=== PATIENT | female | born 1985 | race African-American/Black ===

== ENCOUNTER 2018-03-08 11:09 | Emergency (ER) | payer OTHER, MEDICAID ==
[~2018-03-08] VITALS: Ht 172.7 cm; Wt 108.9 kg
[~2018-03-08 11:09] MED LIST: ACETAMINOPHEN-1 EAC1 PO; ALEVE220 MG PO; BACTRIM DS TAB1 EACH PO; HYDROCODONE-AP1 EAC6 PO; IBUPROFEN 800800 MG PO; NORCO 5-325 TA1 EACH PO; ROBAXIN500 MG PO; TRAMADOL 50 MG50 MG PO; ZOFRAN ODT4 MG PO
[2018-03-08 11:46] LABS: URINE BILIRUBIN NEGATIVE (Negative); URINE BLOOD TRACE (Negative); URINE CLARITY CLEAR; URINE COLOR YELLOW; URINE GLUCOSE-RANDOM NEGATIVE (Negative); URINE KETONES NEGATIVE (Negative); URINE LEUKOCYTES-REFLEX NEGATIVE (Negative); URINE NITRITE-REFLEX NEGATIVE (Negative); URINE PROTEIN NEGATIVE (Negative); URINE SPECIFIC GRAVITY >= 1.030 (1.005-1.030); URINE UROBILINOGEN 0.2 E.U./dl (0.2-1.0)
[2018-03-08 11:56] LABS: ABSOLUTE BASOPHILS 0.1 thou/uL (0.0-0.2); ABSOLUTE EOSINOPHILS 0.6 thou/uL (0.0-0.7); ABSOLUTE LYMPHOCYTES 2.8 thou/uL (0.8-5.3); ABSOLUTE MONOCYTES 0.4 thou/uL (0.0-1.2); ABSOLUTE NEUTROPHILS 5.7 thou/uL (1.6-8.1); EOSINOPHILS 6.7 %; HEMATOCRIT 39.5 % (37.0-47.0); HEMOGLOBIN 12.8 gm/dL (12.0-15.0); LYMPHOCYTES 28.8 %; MCHC 32.6 g/dL (28.0-37.0); MCV 89.1 fL (80.0-100.0); MONOCYTES 4.1 %; NUCLEATED RBCS 0 /100WBC; PLATELET COUNT* 244 thou/uL (150-400); POLYS 59.4 %; RBC 4.43 mil/uL (4.20-5.00); WBC 9.6 thou/uL (4.0-11.0)
[2018-03-08 12:03] LABS: CALCIUM 8.6 mg/dL (8.5-10.1); CREATININE 0.9 mg/dL (0.6-1.3); POTASSIUM 3.6 mmol/L (3.5-5.1)
[2018-03-08 12:08] LABS: ALBUMIN 3.4 g/dL (3.4-5.0); TOTAL BILIRUBIN 0.4 mg/dL (<0.1-1.0); TOTAL PROTEIN 6.5 g/dL (6.4-8.2)
[2018-03-08] MEDS ORDERED: CEFDINIR300 MG PO (12:41)
[2018-03-08] MEDS ORDERED: TORADOL 10 MG T10 MG PO (12:41)
[2018-03-08 13:01] VITALS: BP 113/79
== END 2018-03-08 13:02 | disposition home or self-care (01) ==
LOC: M.ERS 11:09
PROVIDERS: Nurse Practitioner Family
DX: J32.2 Chronic ethmoidal sinusitis (principal); F17.210 Nicotine dependence, cigarettes, uncomplicated

== ENCOUNTER 2020-07-09 10:37 | Emergency (ER) | payer OTHER, MEDICAID ==
[~2020-07-09] VITALS: Ht 175.3 cm; Wt 95.3 kg
[~2020-07-09 10:37] MED LIST changes: +CEFDINIR300 MG PO; +TORADOL 10 MG T10 MG PO
[2020-07-09 12:05] VITALS: BP 109/81
== END 2020-07-09 12:05 | disposition home or self-care (01) ==
LOC: M.ERS 10:37
DX: R06.00 Dyspnea, unspecified (principal); F17.210 Nicotine dependence, cigarettes, uncomplicated; Z20.828 Contact with and (suspected) exposure to other viral communicable diseases

== ENCOUNTER 2020-10-13 03:03 | Emergency (ER) | payer OTHER, MEDICAID ==
[~2020-10-13] VITALS: Ht 175.3 cm; Wt 95.3 kg
[2020-10-13] MEDS ORDERED: ONDANSETRON ODT4 MG PO (03:15)
[2020-10-13] MEDS ORDERED: PHENERGAN 25 MG25 M1 PO ×2 (03:15→04:06)
[2020-10-13 03:55] LABS: URINE BILIRUBIN NEGATIVE (Negative); URINE BLOOD NEGATIVE (Negative); URINE CLARITY CLEAR; URINE COLOR YELLOW; URINE GLUCOSE-RANDOM NEGATIVE (Negative); URINE KETONES NEGATIVE (Negative); URINE LEUKOCYTES-REFLEX NEGATIVE (Negative); URINE NITRITE-REFLEX NEGATIVE (Negative); URINE PROTEIN NEGATIVE (Negative); URINE SPECIFIC GRAVITY 1.025 (1.005-1.030); URINE UROBILINOGEN 0.2 E.U./dl (0.2-1.0)
[2020-10-13 04:03] LABS: AMP/METHAMP Negative (Negative); BARBITURATES Negative (Negative); BENZODIAZEPINES Negative (Negative); COCAINE Negative (Negative); METHADONE Negative (Negative); OPIATES Negative (Negative); PCP Negative (Negative); THC POSITIVE (Negative)
[2020-10-13 04:15] VITALS: BP 113/68
[2020-10-13] MEDS ORDERED: FLONASE 0.05%50 MCG NARES (04:17)
== END 2020-10-13 04:24 | disposition home or self-care (01) ==
LOC: M.ERS 03:03
PROVIDERS: Emergency Medicine
DX: O26.891 Other specified pregnancy related conditions, first trimester (principal); R51.9 Headache, unspecified; O99.331 Smoking (tobacco) complicating pregnancy, first trimester; F17.210 Nicotine dependence, cigarettes, uncomplicated; Z79.899 Other long term (current) drug therapy; Z3A.13 13 weeks gestation of pregnancy

== ENCOUNTER 2021-09-25 19:25 | Emergency (ER) | payer OTHER, MEDICAID ==
[~2021-09-25] VITALS: Ht 175.3 cm; Wt 102.1 kg
[~2021-09-25 19:25] MED LIST changes: +FLONASE 0.05%50 MCG NARES; +ONDANSETRON ODT4 MG PO; +PHENERGAN 25 MG25 M1 PO
[2021-09-25 19:42] VITALS: BP 125/82
[2021-09-25] MEDS ORDERED: FLONASE 0.05%50 MCG NASAL (20:48)
[2021-09-25] MEDS ORDERED: AUGMENTIN 875-1 EACH PO (20:48)
[2021-09-25] MEDS ORDERED: MEDROLDOSEPACK PO (20:48)
== END 2021-09-25 21:32 | disposition home or self-care (01) ==
LOC: M.ERS 19:25
DX: J01.00 Acute maxillary sinusitis, unspecified (principal); Z20.822 Contact with and (suspected) exposure to COVID-19; F17.210 Nicotine dependence, cigarettes, uncomplicated

== ENCOUNTER 2021-09-29 14:38 | Emergency (ER) | payer OTHER, MEDICAID ==
[~2021-09-29] VITALS: Ht 175.3 cm; Wt 99.8 kg
[~2021-09-29 14:38] MED LIST changes: +AUGMENTIN 875-1 EACH PO; +FLONASE 0.05%50 MCG NASAL; +MEDROLDOSEPACK PO
[2021-09-29 16:03] VITALS: BP 110/70
== END 2021-09-29 16:03 | disposition home or self-care (01) ==
LOC: M.ERS 14:38
DX: S01.81XA Laceration without foreign body of other part of head, initial encounter (principal); F17.210 Nicotine dependence, cigarettes, uncomplicated; W22.8XXA Striking against or struck by other objects, initial encounter; Y93.89 Activity, other specified; Y92.89 Other specified places as the place of occurrence of the external cause; Y99.8 Other external cause status

== ENCOUNTER 2021-11-02 23:51 | Emergency (ER) | payer OTHER, MEDICAID ==
[~2021-11-02] VITALS: Ht 175.3 cm; Wt 99.8 kg
[2021-11-03 00:47] VITALS: BP 127/81
== END 2021-11-03 00:47 | disposition home or self-care (01) ==
LOC: M.ERS 23:51
DX: Z20.822 Contact with and (suspected) exposure to COVID-19 (principal); F17.210 Nicotine dependence, cigarettes, uncomplicated

== ENCOUNTER 2021-11-16 14:06 | Emergency (ER) | payer OTHER, MEDICAID ==
[~2021-11-16] VITALS: Ht 175.3 cm; Wt 99.8 kg
[2021-11-16 14:30] VITALS: BP 122/99
[2021-11-16 15:35] LABS: INFLUENZA A ANTIGEN Negative (Negative); INFLUENZA B ANTIGEN Negative (Negative)
[2021-11-16] MEDS ORDERED: TESSALON PERLE100 MG PO (16:43)
[2021-11-16] MEDS ORDERED: ZOFRAN ODT4 MG DISSOLVE (16:43)
== END 2021-11-16 17:07 | disposition home or self-care (01) ==
LOC: M.ERS 14:06
PROVIDERS: Nurse Practitioner Family
DX: U07.1 COVID-19 (principal); F17.210 Nicotine dependence, cigarettes, uncomplicated